=== PATIENT | male | born 1960 | race Caucasian/White ===

== ENCOUNTER 2019-12-08 16:54 | Emergency (ER) | payer OTHER, SELFPAY ==
[2019-12-08 16:55] VITALS: BP 165/107; PULSE 62; RESP 18; TEMP 36.3; O2SAT 99; BMI 26.6
--- NOTE | 2019-12-08 17:09 | ED.DCSUM_ITS ---
- ER Visit Summary Date of Service: 12/08/19 Chief Complaint: Laceration History of Present Illness: The patient is a [address] Son Sherwood. He reports that he caught his left long finger in a planer at 11:00 this morning and suffered an amputation of the palmar surface of the distal phalanx. He r eports that he has an aching pain that is 2 out of 10 currently. Throbbing when placed in a dependent position 4 out of 10. It is worsened by movement or dependent position. Is relieved by rest. He denies any paresthesias. He is right-hand dominant. His tetanus is up-to-date. Physical Examination: Vitals: Stable. Afebrile. General: Well-nourished and well-developed. Head: Normocephalic atraumatic. Neck: Supple, no lymphadenopathy. No JVD. Nontender. Cardiovascular: Regular rate and rhythm. No murmurs. Respiratory: No respiratory distress. Clear to auscultation bilaterally. Abdominal: Soft, nontender, nondistended, normal bowel sounds. No guarding, rebound, or peritoneal signs. Back: Nontender. Extremities: The lateral two thirds of the pad of his distal phalanx of his left long finger is avulsed. There is no tissue that is amenable to repair. Skin: Normal color, no rash. Neurologic: Alert and oriented ?3. Cranial nerves II through XII are intact. Normal strength and sensation. Psych: Normal affect. Test Results: X-ray of his left long finger shows no fracture. Emergency Department Course and Treatment: Patient refused pain medications. He had his wound cleansed and a dressing was placed. Treatment Plan: Patient will be discharged with [facility] for pain. Instructed to follow-up with Dr. Maykel Tripp in 3-5 days for another exam. Return to the emergency department for any signs of infection or increasing pain. Disposition: To home in improved and stable condition. Impression: 1 1. Left middle fingertip avulsion. This note was generated with [employer] dictation software. It may contain incorrect words, spelling, and punctuation that were not noted in review of the chart prior to signing ED Disposition - Plan for ED Patient: Instructions: ED Finger Tip Amputation Open Treatment Prescriptions: Hydrocodone Bitart/Apap 5-325 [[facility] 5MG-325MG] 1 tab PO Q4H PRN PRN 2 Days #10 tab PRN Reason: Pain Referrals: Maykel Tripp MD [STAFF PHYSICIAN] - 3-5 Days
--- NOTE | 2019-12-08 17:15 | RAD_ITS ---
STUDY: X-RAY - LEFT HAND, ATTENTION THIRD FINGER REASON FOR EXAM: Male, 59 years old. laceration to 3rd digit TECHNIQUE: 3 view(s) of the finger were obtained. COMPARISON: None. FINDINGS: Normal metacarpal head. Normal metacarpophalangeal joint. Normal proximal phalanx. Normal middle phalanx. Normal distal phalanx. There is mild degenerative arthrosis of the proximal interphalangeal joint. There is mild degenerative arthrosis of the distal interphalangeal joint. Negative for fracture, dislocation or foreign body. RAD/Finger(s) Min 2 Views IMPRESSION: Soft tissue injury of the distal third finger without underlying acute bone or joint findings. Negative for foreign body. 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 Electronically Signed: Dixie Brown MD at 17:32 EDT , Service support ,
== END 2019-12-08 17:35 | disposition home or self-care (01) ==
PROVIDERS: Emergency Provider Emergency Medicine; PCP Family Medicine
DX: S61.213A Laceration without foreign body of left middle finger without damage to nail, initial encounter (principal); W31.89XA Contact with other specified machinery, initial encounter; Y93.9 Activity, unspecified; Y92.9 Unspecified place or not applicable; I25.10 Atherosclerotic heart disease of native coronary artery without angina pectoris; I10 Essential (primary) hypertension; Z79.899 Other long term (current) drug therapy
CPT/HCPCS: 73140; 99282

== ENCOUNTER 2020-08-01 11:37 | Outpatient (RCR) | payer OTHER, SELFPAY | END 2020-09-17 23:59 | LOC: IMMUN 11:37 | PROVIDERS: PCP Family Medicine; Referring Provider Family Medicine; Visit Provider Family Medicine | DX: Z23 Encounter for immunization (principal) | CPT/HCPCS: 0001A; 0002A; 91300 ==

== ENCOUNTER → 2020-08-22 12:54 | Outpatient (CLI) | payer OTHER, SELFPAY ==
--- NOTE | 2020-08-22 14:12 | NEURO ---
NCS and/or EMG Patient Report Ordering Doctor: Son Sherwood III DATE OF SERVICE: 08/22/20 Indication: Numbness involving the first three digits of the right hand. Atrophy and weakness of the right thenar muscles. Evaluate for median neuropathy at the wrist. Findings: Nerve conduction studies were performed in the right upper extremities. The right median motor study recording the abductor pollicis brevis showed a borderline amplitude, prolonged distal latency and normal conduction velocity. The right ulnar motor study recording the abductor digiti minimi showed a normal amplitude, normal distal latency and normal conduction velocity. No conduction block or focal slowing was present across the elbow. Right median-ulnar lumbrical / interosseous motor latencies showed a normal median latency compared to the ulnar. The right median sensory response recording digit two showed a reduced amplitude, prolonged latency and slowed conduction velocity. The right ulnar sensory response recording digit five showed a normal amplitude, latency and conduction velocity. The right radial sensory response recording over the extensor snuff box showed a normal amplitude, latency and conduction velocity. Needle EMG of the right upper extremity and cervical paraspinal muscles was performed. Active denervation was seen in the abductor pollicis brevis muscle. In the abductor pollicis brevis, distant, rapidly firing units were seen. All other motor unit morphology, activation and recruitment patterns were normal. Impression: This is an abnormal study. There is electrophysiologic evidence of median neuropathy across the right wrist. These findings are compatible with the clinical diagnosis of carpal tunnel syndrome. The pathophysiology is demyelinating with significant secondary axonal loss. In addition, there is no electrophysiologic evidence of a superimposed cervical radiculopathy in the right upper extremity. Bernabe Lainez D.O.
== END ==
PROVIDERS: PCP Family Medicine; Referring Provider Family Medicine; Visit Provider Family Medicine
DX: G56.01 Carpal tunnel syndrome, right upper limb (principal)
CPT/HCPCS: 95886; 95910

== ENCOUNTER → 2023-12-10 | Outpatient (CLI) | payer OTHER, SELFPAY ==
--- NOTE | 2023-12-10 08:09 | RAD_ITS ---
STUDY: X-RAY - ESOPHAGUS (BARIUM SWALLOW) WITH FLUOROSCOPY REASON FOR EXAM: Male, 63 years old. Dysphagia, pharyngeal phase TECHNIQUE: 96 fluoroscopic view(s) of the esophagus were obtained following swallowing of barium. FLUOROSCOPY TIME (if supplied): (46 seconds) minutes/seconds COMPARISON: None. FINDINGS: There is no demonstrated esophageal foreign body. There is evidence of a narrowing at the gastroesophageal junction. Normal gastroesophageal junction, without a demonstrated hiatal hernia. The patient ingested a 12 mm tablet of barium. The tablet is trapped at the gastroesophageal junction. Endoscopic correlation recommended. There is atherosclerotic calcification of the aortic arch with tortuosity of the descending aorta. Normal visualized pulmonary parenchyma. Normal visualized osseous structures of the thorax. RAD/Esophagus Dual Contrast IMPRESSION: There is mild narrowing at the gastroesophageal junction with trapping of the 12 mm tablet of barium. Endoscopic correlation is recommended. Electronically Signed: Ty Rothman MD at 9:04 EDT ,
== END | disposition home or self-care (01) ==
PROVIDERS: PCP Family Medicine; Referring Provider Otolaryngology; Visit Provider Otolaryngology
DX: R13.13 Dysphagia, pharyngeal phase (principal)
CPT/HCPCS: 74221